=== PATIENT | female | born 2000 | race Caucasian/White ===

== ENCOUNTER 2024-03-19 16:44 | Emergency (ER) | payer OTHER ==
[~2024-03-19] VITALS: Ht 165.1 cm; Wt 65.9 kg
[2024-03-19] MEDS ORDERED: PREDNISONE20 MG PO (17:44)
[2024-03-19] MEDS ORDERED: TRIAMCINOLONE A15 G3 TOP (17:44)
[2024-03-19] MEDS ORDERED: predniSONE 20 MG TAB PO ONE (17:45)
[2024-03-19 17:54] VITALS: BP 104/60
== END 2024-03-19 17:54 | disposition home or self-care (01) ==
LOC: ED 16:44
DX: Q82.8 Other specified congenital malformations of skin (principal)
CPT/HCPCS: 99282; J7512